=== PATIENT | male | born 1950 | race Caucasian/White ===

== ENCOUNTER 2016-07-31 07:15 | Day surgery (SDC) | payer OTHER ==
[2016-07-31] VITALS (7 sets, daily range): BP systolic 103–134; BP diastolic 55–83; PULSE 59–88; RESP 18–20; TEMP 97–97.6; O2SAT 93–98
[~2016-07-31] VITALS: Ht 182.9 cm; Wt 70.0 kg
[2016-07-31] MEDS ORDERED: PLAV75TA29 PO (07:35)
[2016-07-31] MEDS ORDERED: ATOR20TA15 PO (07:35)
[2016-07-31] MEDS ORDERED: CILO100T PO (07:35)
[2016-07-31] MEDS ORDERED: SODIUM CHLOR 0.9% 1000 ML IV SCH (07:45)
[2016-07-31 08:29] LABS: HEMATOCRIT 23.9 % (39.0-51.0); MEAN CELL VOLUME 104.2 FL (80.0-100.0); MEAN CORPUSCULAR HEMOGLOBIN 35.5 PG (27.0-34.0); MEAN CORPUSCULAR HGB CONC 34.1 % (32.0-36.0); PLATELET COUNT 264 TH/MM3 (150-450); RED BLOOD COUNT 2.29 MIL/MM3 (4.50-5.90); RED CELL DISTRIBUTION WIDTH 22.4 % (11.6-17.2); REVIEW FLAG FINAL; WHITE BLOOD COUNT 2.7 TH/MM3 (4.0-11.0)
[2016-07-31] MEDS ORDERED: LIDOCAINE 1%/EPINEPHrine 1:100,000 SOLN 20 ML VIAL ONE (09:19)
[2016-07-31] MEDS ORDERED: fentaNYL CITRATE 250 MCG/5 ML AMP ONE (09:38)
[2016-07-31] MEDS ORDERED: MIDAZOLAM HCL 5 MG/5 ML VIAL ONE (09:38)
[2016-07-31 11:57] LABS: BONE MARROW PROCESSING COMPLETE; IRON STAIN DONE; JENNER GIEMSA STAIN DONE
--- NOTE | 2016-07-31 13:40 | RADRPT ---
EXAM DATE/TIME: 07/31/2016 09:45 [place] COMPARISON: No previous studies available for comparison. INDICATIONS : Lung mass. SEDATION TIME: 30 minutes BIOPSY SITE: Right ilium. MEDICATION(S): 1.) 4 mg midazolam (Versed) IV 2.) 200 mcg fentanyl (Sublimaze) IV DEVICE(S): 1.) 11 gauge Bone marrow biopsy needle MEDICAL HISTORY : Hypertension. Diabetes mellitus type 2. Peripheral vascular disease. SURGICAL HISTORY : None. ENCOUNTER: Initial ACUITY: 1 day PAIN SCORE: 0/10 LOCATION: pelvis A total of two core specimen(s) were obtained and sent to the laboratory for pathologic evaluation. PROCEDURE: 1. CT guided bone marrow biopsy. 2. Conscious sedation with continuous EKG and oximetry monitoring. 3. EKG and oximetry remained stable throughout the procedure. Prior to the procedure informed consent was obtained. Any appropriate prior imaging studies were rev iewed. Using automated exposure control and adjustment of the mA and/or kV according to patient size , radiation dose was kept as low as reasonably achievable to obtain optimal diagnostic quality images . The site was prepped in a sterile fashion. Full sterile technique was used, including cap, mask, awilda rile gloves and gown and a large sterile sheet. Hand hygiene and 2% chlorhexidine and/or betadine/al cohol prep was utilized per protocol for cutaneous antisepsis. The skin and subcutaneous tissues wer e infiltrated with local anesthetic solution. With CT guidance the previously identified target was localized. Biopsy was performed using the presc ribed needle as above. Following biopsy marrow aspiration was performed with repeat puncture. Adequa te hemostasis was obtained with compression at the puncture site. Follow-up CT scan reveals no hemorrhage. Conscious sedation was performed with the prescribed dosages and duration as above in the presence of an independent trained radiology nurse to assist in the monitoring of the patient. EKG and oximetry remained stable throughout the procedure. The patient tolerated the procedure well and there were no complications. The patient was sent to Radiology Outpatient Unit in stable condition. CONCLUSION: 1. Uncomplicated CT guided bone marrow aspirate. 2. Uncomplicated CT guided bone marrow biopsy. Amauri Ríos MD FACR on July 31, 2016 at 13:38 Board Certified Radiologist. This report was verified electronically.
== END 2016-07-31 13:30 | disposition home or self-care (01) ==
LOC: HRAD 07:15 → HRIP 07:18 → HRAD 13:30
PROVIDERS: ATTEND Internal Medicine Hematology & Oncology
DX: R91.8 Other nonspecific abnormal finding of lung field (principal); D61.818 Other pancytopenia; I10 Essential (primary) hypertension; I73.9 Peripheral vascular disease, unspecified; E11.9 Type 2 diabetes mellitus without complications
CPT/HCPCS: 38221; 77012; 85027; 85097; 88184; 88185; 88237; 88264; 88305; 88311; 88313; 99152; 99153; C1830; G0364; J2250; J3010; J7030; 20225